=== PATIENT | male | born 1985 | race Caucasian/White ===

== ENCOUNTER 2023-01-10 09:42 | Emergency (ER) | payer BC | END 2023-01-10 10:38 | disposition home or self-care (01) | LOC: JD.ED 09:42 | DX: M54.12 Radiculopathy, cervical region (principal); Z87.891 Personal history of nicotine dependence; Z86.16 Personal history of COVID-19 | CPT/HCPCS: 99283 ==

== ENCOUNTER 2023-01-14 08:32 | Emergency (ER) | payer BC ==
[2023-01-14] MEDS ORDERED: predniSONE 20 MG Tab PO ONE (10:09)
== END 2023-01-14 10:20 | disposition home or self-care (01) ==
LOC: JD.ED 08:32
DX: M54.12 Radiculopathy, cervical region (principal); Z86.16 Personal history of COVID-19; Z88.1 Allergy status to other antibiotic agents
CPT/HCPCS: 72050; 99284; J7512

== ENCOUNTER 2024-03-17 15:45 | Emergency (ER) | payer BC ==
[2024-03-17] MEDS: Diphtheria,Pertussis(Acell),Tetanus Vaccine 0.5 ML Syringe IM ONE (18:02)
== END 2024-03-17 18:31 | disposition home or self-care (01) ==
LOC: JD.ED 15:45
DX: S61.211A Laceration without foreign body of left index finger without damage to nail, initial encounter (principal); F17.210 Nicotine dependence, cigarettes, uncomplicated; Z88.8 Allergy status to other drugs, medicaments and biological substances; Z86.16 Personal history of COVID-19; W27.4XXA Contact with kitchen utensil, initial encounter; Z23 Encounter for immunization
CPT/HCPCS: 12001; 90471; 90715; 99282-25